=== PATIENT | female | born 1990 | race Hispanic/Latino ===

== ENCOUNTER 2017-10-03 09:26 | Emergency (ER) | payer OTHER ==
[~2017-10-03] VITALS: Ht 165.1 cm; Wt 70.0 kg
[2017-10-03] MEDS ORDERED: NAPROSYN500 MG PO (10:37)
[2017-10-03 10:39] VITALS: BP 143/73
== END 2017-10-03 10:46 | disposition home or self-care (01) | DRG 563 ==
LOC: ED 09:26
DX: S93.401A Sprain of unspecified ligament of right ankle, initial encounter (principal); X50.1XXA Overexertion from prolonged static or awkward postures, initial encounter; Y93.01 Activity, walking, marching and hiking; Y92.009 Unspecified place in unspecified non-institutional (private) residence as the place of occurrence of the external cause